=== PATIENT | female | born 1985 | race Caucasian/White ===

== ENCOUNTER 2016-08-03 11:22 | Inpatient (IN) | payer BC ==
[~2016-08-03] VITALS: Ht 167.6 cm; Wt 79.8 kg
[2016-08-03 21:20] LABS: RED BLOOD COUNT 3.13 M/UL (4.00-5.10)
[2016-08-05 03:55] LABS: HEMOGLOBIN 9.3 gm/dl (12.3-15.3)
== END 2016-08-05 16:04 | disposition home or self-care (01) | DRG 774 ==
LOC: GENOP 11:22 → OB 17:20
PROVIDERS: ADMIT Obstetrics & Gynecology
PROC: 3E0234Z Introduction of Serum, Toxoid and Vaccine into Muscle, Percutaneous Approach (ICD-10-PCS; 2016-08-03)
PROC: 10E0XZZ Delivery of Products of Conception, External Approach (ICD-10-PCS; principal; 2016-08-04)
DX: O98.32 Other infections with a predominantly sexual mode of transmission complicating childbirth (principal); O98.82 Other maternal infectious and parasitic diseases complicating childbirth; A63.0 Anogenital (venereal) warts; O99.89 Other specified diseases and conditions complicating pregnancy, childbirth and the puerperium; N87.9 Dysplasia of cervix uteri, unspecified; Z80.3 Family history of malignant neoplasm of breast; Z72.89 Other problems related to lifestyle; B95.1 Streptococcus, group B, as the cause of diseases classified elsewhere; Z3A.38 38 weeks gestation of pregnancy; Z37.0 Single live birth; Z23 Encounter for immunization
CPT/HCPCS: 36415; 51702; 82800; 85014; 85018; 85025; 90715; J2300; J2405; J2590; J2795; J3010; J3430; J7120